=== PATIENT | female | born 1980 | race African-American/Black ===

== ENCOUNTER 2020-07-29 09:09 | Outpatient (CLI) | payer OTHER, SELFPAY ==
[2020-07-29 09:30] LABS: Basophils Percent Auto 0.6 % (0.2-1.2); Eosinophils Absolute Auto 0.2 K/mm3 (0-0.3); Eosinophils Percent Auto 3.1 % (0-4.4); Hematocrit 35.5 % (37.0-47.0); Hemoglobin 11.4 g/dL (12.0-15.0); Immature Granulocyte Absolute 0.02 K/mm3 (0.00-0.031); Immature Granulocyte Percent A 0.3 % (0-0.5); Lymphocytes Absolute Auto 1.99 K/mm3 (0.9-3.2); Lymphocytes Percent Auto 29.2 % (18.3-44.2); Mean Corpuscular HGB Conc 32.1 g/dl (32-36); Mean Corpuscular Hemoglobin 27.7 pg (26-34); Mean Corpuscular Volume 86.4 fl (80-100); Mean Platelet Volume 9.9 fl (7.4-10.4); Monocytes Absolute Auto 0.4 K/mm3 (0.1-0.6); Monocytes Percent Auto 5.4 % (2.6-8.5); Neutrophils Absolute Auto 4.2 K/mm3 (1.3-6.7); Neutrophils Percent Auto 61.4 % (45.5-73.1); Platelet Count Result 374 k/mm3 (150-375); Red Blood Count 4.11 M/mm3 (4.2-5.4); Red Cell Distribution Width 12.8 % (11.5-14.5); White Blood Count 6.8 K/mm3 (4.5-10.0)
== END 2020-07-29 09:10 | disposition home or self-care (01) ==
LOC: ANHSURGERY 09:14
PROVIDERS: Visit Provider Obstetrics & Gynecology
DX: N92.6 Irregular menstruation, unspecified (principal)
CPT/HCPCS: 36415; 85025; 86850; 86900; 86901

== ENCOUNTER 2020-08-03 02:19 | Outpatient (CLI) | payer OTHER, SELFPAY ==
[2020-08-03 18:24] LABS: SARS-CoV-2 RNA PCR Negative
== END 2020-08-03 02:20 | disposition home or self-care (01) ==
LOC: ANHCOVIDDT 02:19
PROVIDERS: Visit Provider Obstetrics & Gynecology
DX: Z01.812 Encounter for preprocedural laboratory examination (principal); Z20.828 Contact with and (suspected) exposure to other viral communicable diseases
CPT/HCPCS: 87635; C9803; U0003

== ENCOUNTER 2020-08-05 00:35 | Day surgery (SDC) | payer OTHER, SELFPAY ==
[2020-07-25 08:46] VITALS: BMI 44.6
--- NOTE | 2020-08-03 07:58 | PM.IMHP ---
H&P: HPI History of Present Illness Date/Time: 08/03/20 07:58 Chief complaint: Irregular Bleeding/ Enlarged Uterus/ Fibroids Narrative: Ashkan Brewster is a 39 year old female With an enlarged uterus who was admitted for robotic hysterectomy and bilateral salpingectomy. She complains of excessive heavy bleeding chronic and severe pelvic pain and dyspareunia. She has an ultrasound confirming an enlarged fibroid uterus. She opts for definitive therapy. Risks and benefits were reviewed including but not exclusive of , aspiration pneumonia, bleeding, transfusion, perforation injury to bowel, bladder, ureters or other internal organs with need for open laparotomy screws good understanding. She had all questions answered. She PMFSH Social History Social History Smoking status: Never smoker Alcohol intake: current Drinks per week: 3 Substance use: former Substance use type: marijuana Spiritual care concerns: No Meds Home Medications and Allergies Home Medications Medication Instructions Recorded Confirmed Type hydrocodone-acetaminophen 1 tablet PO DAILY 07/25/20 07/25/20 History ibuprofen 600 mg PO Q6H PRN 07/25/20 07/25/20 History loratadine [Claritin] 10 mg PO DAILY 07/25/20 07/25/20 History tramadol 50 mg PO DIRECTED PRN 07/25/20 07/25/20 History Allergies Allergy/AdvReac Type Severity Reaction Status Date / Time No Known Allergies Allergy Unknown Unverified 07/25/20 08:47 Exam Const: General: no acute distress Eyes: General: appearance normal, both eyes and all related structures Neck: Neck: supple and no JVD Thyroid: thyroid normal Resp: Effort & Inspection: normal respiratory effort Auscultation: clear to auscultation bilaterally Cardio: Rate: regular rate Rhythm: regular rhythm GI: Inspection: non-distended GI Palp: Yes Soft to palpation, No Tenderness to palpation present (GI) and No Guarding due to palpation present (GI) Auscultation: normal bowel sounds : General: Yes bladder normal to inspection External Female Exam: normal external appearance Speculum Exam - Vagina: normal appearance of the vagina Speculum Exam - Cervix: Cervical os closed Bimanual exam- vagina & uterus: enlarged Skin: General skin exam: no rashes or lesions noted Extrem: General: normal to inspection and no edema Psych: Mental Status: mental status grossly normal Affect: normal affect Assessment and Plan Additional Plan impression: Enlarged uterus and pelvic pain with irregular bleeding refractory to medical therapy Plan: Robotic total vaginal hysterectomy and bilateral salpingectomies
--- NOTE | 2020-08-04 14:34 | WPDANESEPP ---
Anes - Eval Pre Procedure Procedure: Operation Date: 08/05/20 07:30 Proposed Procedures p Robotic Assisted Total Vaginal Hysterectomy With Bilateral Salpingectomy - Remington Viramontes MD Date/Time: 08/04/20 14:34 Pre Op Diagnosis: Irregular Bleeding/ Enlarged Uterus/ Fibroids Patient Data Age: 39 Gender: F Height: 1.63 m Weight: 117.93 kg Allergies Allergy/AdvReac Type Severity Reaction Status Date / Time No Known Allergies Allergy Unknown Unverified 07/25/20 08:47 Home Medications Medication Instructions Recorded Confirmed Type hydrocodone-acetaminophen 1 tablet PO DAILY 07/25/20 07/25/20 History ibuprofen 600 mg PO Q6H PRN 07/25/20 07/25/20 History loratadine [Claritin] 10 mg PO DAILY 07/25/20 07/25/20 History tramadol 50 mg PO DIRECTED PRN 07/25/20 07/25/20 History Patient hx anesthesia problems: none Family hx anesthesia problems: none PMFSH Past Medical History Medical History (Updated 08/04/20 @ 14:34 by Jessica Hutchinson CRNA) Marijuana smoker Morbid obesity with BMI of 40.0-44.9, adult Social History Social History Smoking status: Never smoker Alcohol intake: current Drinks per week: 3 Substance use: former Substance use type: marijuana Spiritual care concerns: No Exam Day of Procedure 08/04/20 14:34
[2020-08-05] VITALS (15 sets, daily range): BP systolic 96–127; BP diastolic 44–61; PULSE 48–76; RESP 8–18; TEMP 36.1–36.7; O2SAT 92–100
--- NOTE | 2020-08-05 06:30 | WPDHPUPDATE1 ---
History and Physical Update Update Date/Time: 08/05/20 06:30 History and Physical has been reviewed, including an updated exam of the patient. There are NO changes in the patient's condition. Risks, benefits, and alternatives have been discussed and questions answered. Patient agrees to proceed with procedure.
[2020-08-05] MEDS: LACTATED RINGERS 1,000 ML 30 ML IV CONT ×2 (07:03→09:15)
[2020-08-05 07:11] LABS: Beta HCG Quantitative 73.08 mIU/ML
--- NOTE | 2020-08-05 07:14 | WPDHPUPDATE1 ---
History and Physical Update Update Date/Time: 08/05/20 07:14 History and Physical has been reviewed, including an updated exam of the patient. There are NO changes in the patient's condition. Risks, benefits, and alternatives have been discussed and questions answered. Patient agrees to proceed with procedure. quant hcg is 73. she is blledding heavily consitent with abnormal . pt agreeable to proceed
--- NOTE | 2020-08-05 07:17 | WPDANESEPPF ---
Anes - Initial Pre Proc Eval Procedure: Operation Date: 08/05/20 07:30 Proposed Procedures p Robotic Assisted Total Vaginal Hysterectomy With Bilateral Salpingectomy - Remington Viramontes MD Date/Time: 08/05/20 07:17 Surgeon: Remington Viramontes MD Pre Op Diagnosis: Irregular Bleeding/ Enlarged Uterus/ Fibroids Patient Data Age: 39 Gender: F Height: 5 ft 4 in Weight: 112.4 kg Last Vital Signs Temp 36.2 C L 08/05/20 06:46 Pulse 71 08/05/20 06:46 Resp 18 08/05/20 06:46 BP 127/50 L 08/05/20 06:46 Pulse Ox 100 08/05/20 06:46 Allergies Allergy/AdvReac Type Severity Reaction Status Date / Time No Known Allergies Allergy Unknown Unverified 07/25/20 08:47 Home Medications Medication Instructions Recorded Confirmed Type hydrocodone-acetaminophen 1 tablet PO DAILY 07/25/20 08/05/20 History ibuprofen 600 mg PO Q6H PRN 07/25/20 08/05/20 History loratadine [Claritin] 10 mg PO DAILY 07/25/20 08/05/20 History tramadol 50 mg PO DIRECTED PRN 07/25/20 08/05/20 History hydrocodone-acetaminophen [[place]] 1 tablet PO Q4H PRN #30 tablet 08/05/20 Rx Laboratory Tests 08/05/20 06:35 Beta HCG, Quant 73.08 mIU/ML mIU/ML Patient hx anesthesia problems: none Family hx anesthesia problems: none PMFSH Past Medical History Medical History Marijuana smoker Morbid obesity with BMI of 40.0-44.9, adult Social History Social History Smoking status: Never smoker Alcohol intake: current Drinks per week: 3 Substance use: former Substance use type: marijuana Spiritual care concerns: No Anes - Eval Final PreProcedure Day of Procedure 08/05/20 07:17 Patient weight: morbidly obese Heart: regular rate and rhythm Lungs: clear to auscultation Airway: Mallampati scale class 1 Neurological: alert and oriented Last oral intake: >/= 8 hours ASA classification: III Emergent: no Anesthetic plan: proceed Anesthesia type and monitoring: general ETT and standard monitoring Informed Consent: The patient's anesthetic plan and its attendant risks and benefits were discussed with the patient/family/POA. Questions were solicited and answers provided to the satisfaction of the patient/family/POA.
[2020-08-05] MEDS: KETOROLAC 15 MG/ML VIAL (*BKC) IV PUSH (07:18)
[2020-08-05] MEDS: ACETAMINOPHEN 500 MG TABLET 1000 MG PO (07:18)
[2020-08-05] MEDS: ceFAZolin SODIUM 1 GM VIAL IV PUSH (07:26)
[2020-08-05] MEDS: ceFAZolin 2 GM/D5W 50 ML 2 GM/50 ML BAG IVPB (07:26)
--- NOTE | 2020-08-05 07:27 | SUR.PREOP ---
0630- URINE PREG. OBTAINED ON PT. RESULTED POSITIVE. PT STATED SHE STARTED BLEEDING YESTERDAY AND HAS CRAMPING. CALLED DR.DALLA WHELAN WITH RESULTS. BETA HCG OBTAINED. RESULTED (SEE CHART). DR. ADRIANA WHELAN REVIEWED RESULTS AND SPOKE WITH PT. AFTER SPEAKING WITH DR. ADRIANA WHELAN AND PT DECIDED TO MOVE FORWARD WITH PROCEDURE.
--- NOTE | 2020-08-05 08:58 | PM.PROC ---
Procedure Note - Detailed Date of procedure: 08/05/20 Pre-op diagnosis: Irregular Bleeding/ Enlarged Uterus/ Fibroids Surgeon: Remington Viramontes MD Postop diagnosis: Irregular bleeding/ enlarged uterus /fibroids Procedure: Robotic total vaginal hysterectomy and bilateral salpingectomies EBL: 50cc Anesthesia: General endotracheal Complications: None Findings: A markedly enlarged fibroid uterus. Normal-appearing ovaries bilaterally bilateral hydrosalpinx. Description of procedure: The patient was prepped draped in normal sterile fashion placed in the dorsal lithotomy position. Under excellent general endotracheal anesthesia weighted speculum placed in posterior fornix of vagina. The anterior lip of the cervix was grasped with single-tooth tenaculum the uterus sounded to 10cm. Serial dilatation with fragmented dilators was performed. This was followed by passage of the 8. LOIDA and the 3. And half cold cup. A 16 [place] catheter was placed and the bladder drained of clear urine. There were other instruments removed. The gloves were changed. Supraumbilical incision was made in the Veress needle passed in the abdomen. The abdomen was filled with CO2 gas [id number]. The 8mm trocar was advanced in the abdomen. The downside was visualized and no injury seen. The patient was placed in Trendelenburg left lateral incisions were made in the 8mm trocars advanced under direct visualization assuring no injury. A right upper quadrant incision was made in the 10mm trocar advanced under direct visualization again assuring no injury. The uterus was noted be large irregular there were some mild amount of scar tissue and the tubes were bilaterally consistent with hydrosalpinx. Attention was turned to the employee counselor. The left fallopian tube was grasped at its midportion and this was sharply dissected away from the ovary to its base at the uterus. In like fashion to remove the right tube this was performed as well. The left round ligament was grasped, burned, cut. Anteriorly a bladder flap was formed and the bladder was reflected away from the uterus and cervix caudally to the opposite round ligament which was clamped, burned, cut. Next the utero-ovarian ligament left was skeletonized. This was clamped, burned, cut and brought to the level of the previously cut round ligament to conserve the left ovary. Conserving the right ovary the utero-ovarian ligament on the right was clamped, burned, cut brought to the level of the previously cut round ligament. Next the cardinal and broad ligaments were serially skeletonized on the left clamped, burned, cut and brought down the lateral edge of the uterus until the uterine vessels could be seen. These were large and tortuous and were individually clamped, burned, cut. In like fashion the cardinal and broad ligaments on the right were serially skeletonized. These were clamped, burned, cut brought down the lateral edge of the cervix and uterus until the uterine vessels right could be seen these were individually clamped, burned,. Blanching the uterus was seen a colpotomy incision was made and the cervix uterus and tubes were removed. The uterus weighed in excess of 370 g. Blood loss was estimated [id number] the vaginal cuff was closed with continuous running 0V lock from lateral edge to lateral edge and back to the midline. Irrigation was undertaken until clear. The raw surface area was removed with hematuria. Hemostasis at all pedicles appeared present. The robot was undocked. The gas removed from the abdomen. The trocars from the abdomen. The incisions closed with 4 O Monocryl and glue. Instruments removed from the vagina. The patient was awakened and went to recovery in satisfactory condition. All sponge, needle, instrument counts were correct. There were no immediate complications
[2020-08-05] MEDS: fentaNYL CITRATE INJ (*CRX) 100 MCG/2 ML VIAL 25 MCG IV PUSH ×4 (09:33→09:50)
[2020-08-05] MEDS: DEXTROSE 5%/LACTATED RINGERS 1,000 ML 125 ML IV CONT (10:54)
[2020-08-05] MEDS: HYDROcodone/acetaminophen (*CRX) 10-325 MG TABLET 1 TAB PO ×2 (10:56→16:49)
[2020-08-05] MEDS: ENOXAPARIN 40 MG/0.4 ML SYRINGE SUB-Q (10:56)
[2020-08-05] MEDS: KETOROLAC 30 MG/ML VIAL (*BKC) IV PUSH ×2 (13:37→20:22)
[2020-08-05] MEDS: DOCUSATE SODIUM 100 MG CAPSULE PO (16:50)
[2020-08-05] MEDS: ONDANSETRON INJ 4 MG/2 ML VIAL IV PUSH (17:32)
[2020-08-06] MEDS: KETOROLAC 30 MG/ML VIAL (*BKC) IV PUSH (04:47)
[2020-08-06 04:50] VITALS: BP 109/58; PULSE 60; RESP 12; TEMP 37.3; O2SAT 94
[2020-08-06] MEDS: HYDROcodone/acetaminophen (*CRX) 5-325 MG TABLET 1 TAB PO ×2 (05:19→10:55)
[2020-08-06 06:12] LABS: Basophils Percent Auto 0.3 % (0.2-1.2); Eosinophils Percent Auto 0.1 % (0-4.4); Hematocrit 33.2 % (37.0-47.0); Hemoglobin 10.6 g/dL (12.0-15.0); Immature Granulocyte Absolute 0.03 K/mm3 (0.00-0.031); Immature Granulocyte Percent A 0.3 % (0-0.5); Lymphocytes Absolute Auto 1.93 K/mm3 (0.9-3.2); Lymphocytes Percent Auto 17.9 % (18.3-44.2); Mean Corpuscular HGB Conc 31.9 g/dl (32-36); Mean Corpuscular Hemoglobin 27.4 pg (26-34); Mean Corpuscular Volume 85.8 fl (80-100); Mean Platelet Volume 10.8 fl (7.4-10.4); Monocytes Absolute Auto 0.5 K/mm3 (0.1-0.6); Monocytes Percent Auto 4.7 % (2.6-8.5); Neutrophils Absolute Auto 8.3 K/mm3 (1.3-6.7); Neutrophils Percent Auto 76.7 % (45.5-73.1); Platelet Count Result 310 k/mm3 (150-375); Red Blood Count 3.87 M/mm3 (4.2-5.4); Red Cell Distribution Width 12.7 % (11.5-14.5); White Blood Count 10.8 K/mm3 (4.5-10.0)
--- NOTE | 2020-08-06 07:25 | P.DS_ITS ---
DS: Admitting Diagnosis Admitting Diagnosis Admitting Diagnosis: Irregular Bleeding/ Enlarged Uterus/ Fibroids DS: Summary Time Spent with Patient Time attestation: Total time spent providing and/or coordinating discharge services: The patient is course was unremarkable. She remained afebrile. She was up, voiding without difficulty passing gas, eating, and generally without complaints. Condition was stable upon discharge. Exam Const: General: no acute distress Eyes: General: appearance normal, both eyes and all related structures Neck: Neck: supple and no JVD Thyroid: thyroid normal Resp: Effort & Inspection: normal respiratory effort Auscultation: clear to auscultation bilaterally Cardio: Rate: regular rate Rhythm: regular rhythm GI: Inspection: non-distended GI Palp: Yes Soft to palpation, No Tenderness to palpation present (GI) and No Guarding due to palpation present (GI) Auscultation: normal bowel sounds : General: Yes bladder normal to palpation External Female Exam: normal external appearance Speculum Exam - Vagina: normal vaginal discharge and No v aginal bleeding Speculum Exam - Cervix: nontender Bimanual exam- vagina & uterus: bladder normal to palpation and No Cervical tenderness present OB/external & speculum: No vaginal bleeding Skin: General skin exam: no rashes or lesions noted Extrem: General: normal to inspection and no edema Psych: Mental Status: mental status grossly normal Affect: normal affect DS: Data Data Completed and Pending Pending studies at discharge: Pending at discharge 08/05/20 08:20 Surgical [PTH] Routine Labs on day of discharge: Labs from last 24 hours 08/06/20 04:59 WBC 10.8 H RBC 3.87 L Hgb 10.6 L Hct 33.2 L MCV 85.8 MCH 27.4 MCHC 31.9 L RDW 12.7 Plt Count 310 MPV 10.8 H Immature Gran % (Auto) 0.3 Neut % (Auto) 76.7 H Lymph % (Auto) 17.9 L [place] % (Auto) 4.7 Eos % (Auto) 0.1 Baso % (Auto) 0.3 Lymph # (Auto) 1.93 [place] # (Auto) 0.5 Eos # (Auto) 0.0 Baso # (Auto) 0.0 Abs Immat Gran (auto) 0.03 Absolute Neuts (auto) 8.3 H Absolute Nucleated RBC 0.0 Nucleated RBC % 0.0 Discharge Plan Discharge Patient Disposition: Home, Self-Care Stand Alone Forms: General Discharge Instructions Follow-up/Referrals: Remington Viramontes MD [Physician] - Discharge Medications: New hydrocodone-acetaminophen [[place]] 5-325 mg tablet 1 tablet PO Q4H PRN (Reason: pain) Qty: 30 RF: 0 No Action hydrocodone-acetaminophen 5-325 mg tablet 1 tablet PO DAILY RF: 0 tramadol 50 mg tablet 50 mg PO DIRECTED PRN (Reason: Pain) RF: 0 ibuprofen 600 mg tablet 600 mg PO Q6H PRN (Reason: Pain) RF: 0 loratadine [Claritin] 10 mg Tablet 10 mg PO DAILY RF: 0
[2020-08-06 08:00] VITALS: BP 129/68; PULSE 73; RESP 14; TEMP 36.3; O2SAT 100
[2020-08-06] MEDS: IBUPROFEN 600 MG TABLET PO (10:54)
== END 2020-08-06 11:50 | disposition home or self-care (01) ==
LOC: ANHSURGERY 06:31 → ANHOB2 10:46
PROVIDERS: Visit Provider Obstetrics & Gynecology
PROC: (CPT 58554; principal; 2020-08-05 07:30)
DX: N93.9 Abnormal uterine and vaginal bleeding, unspecified (principal); N70.11 Chronic salpingitis; N72 Inflammatory disease of cervix uteri; D25.0 Submucous leiomyoma of uterus; D25.1 Intramural leiomyoma of uterus; D25.2 Subserosal leiomyoma of uterus; N83.8 Other noninflammatory disorders of ovary, fallopian tube and broad ligament; R10.2 Pelvic and perineal pain; N94.10 Unspecified dyspareunia; G89.29 Other chronic pain; E66.01 Morbid (severe) obesity due to excess calories; Z68.41 Body mass index [BMI] 40.0-44.9, adult
CPT/HCPCS: 58554; S2900; 36415; 84702; 85025; 88307; 99199; A9270; J0330; J0690; J1100; J1170; J1650; J1885; J2250; J2370; J2405; J2704; J2710; J3010; J7030; J7120; J7121

== ENCOUNTER 2020-08-12 13:12 | Observation (INO) | payer OTHER, SELFPAY ==
--- NOTE | ~2020-08-12 | XR_ITS ---
XR abdomen/kub 1V DATE: 08/12/2020 13:55 INDICATION: Low abdominal pain, constipation. Laparoscopic hysterectomy one week ago TECHNIQUE: AP projection, 2 views COMPARISON: None FINDINGS: The psoas shadows are intact. No visceromegaly is evident. There is no evidence of bowel ob struction. There are bilateral calcified pelvic phleboliths. Included skeletal structures are unremar kable. IMPRESSION: No significant abnormality Reviewed, dictated and finalized at [facility]. Reviewed, dictated and finalized at [facility]. IMPRESSION: No significant abnormality
--- NOTE | ~2020-08-12 | CT_ITS ---
EXAMINATION: CT abdomen pelvis w con DATE: 08/12/2020 16:13 INDICATION: Abdominal pain and constipation. TECHNIQUE: Computed tomography (CT) of the abdomen and pelvis was performed with 100 mL Omnipaque-350 intravenous contrast. Automated exposure control and iterative reconstruction technique were employe d. The dose-length product was 1536.79 mGy-cm. COMPARISON: None FINDINGS: Lung bases are clear. Heart size is normal. No pericardial or pleural effusion. Small region of subtl e focal hepatic steatosis at the ligamentum teres. Gallbladder, spleen, pancreas, bilateral adrenal g lands and kidneys are normal. Small fat-containing umbilical hernia. There is a small amount of gas i n the supra umbilical anterior abdominal wall likely along a laparoscopy port tract with subtle stran ding along a couple additional likely laparoscopy port tracks in the right mid and lower abdomen. [place] tommy is not visualized consistent with provided history of recent hysterectomy. There is peripheral en hancement surrounding a few small loculated gas and fluid collections in the pelvis, the largest rosalva uring 5.0 x 4.2 x 4.0 cm positioned between the cervix and the rectum. There is mild stranding in the pelvis. There is edematous-appearing rectal wall thickening. The remainder of the more proximal bobby ls including the appendix are normal. Bilateral ovaries are unremarkable. Mild bladder wall thickenin g which could be due to partially decompressed state or cystitis either due to urinary tract infectio n or reactive to the adjacent inflammatory changes in the pelvis. No pathologically enlarged abdomina l or pelvic lymphadenopathy. Mild degenerative skeletal changes in the spine and at the bilateral hip s. IMPRESSION: 1. Postoperative changes of recent laparoscopic hysterectomy with a few small loculated gas and fluid collections in the deep pelvis, the largest in the cul-de-sac measuring 5.0 cm maximal diameter. Dif ferential would include abscess or postoperative hematoma/seroma. 2. Wall thickening at the rectum and bladder likely related to inflammation due to the adjacent suspe cted abscess. Cystitis and localized colitis are considered less likely but would correlate with urin alysis. Reviewed, dictated and finalized at location A. IMPRESSION: 1. Postoperative changes of recent laparoscopic hysterectomy with a few small l oculated gas and fluid collections in the deep pelvis, the largest in the cul-d e-sac measuring 5.0 cm maximal diameter. Differential would include abscess or postoperative hematoma/seroma. 2. Wall thickening at the rectum and bladder likely related to inflammation due to the adjacent suspected abscess. Cystitis and localized colitis are consider ed less likely but would correlate with urinalysis.
[2020-08-12 13:21] VITALS: BP 132/58; PULSE 82; RESP 18; TEMP 36.4; O2SAT 100
[2020-08-12 13:31] LABS: Basophils Absolute Auto 0.1 K/mm3 (0.0-0.1); Basophils Percent Auto 0.5 % (0.2-1.2); Eosinophils Absolute Auto 0.2 K/mm3 (0-0.3); Eosinophils Percent Auto 1.2 % (0-4.4); Hematocrit 33.6 % (37.0-47.0); Hemoglobin 10.7 g/dL (12.0-15.0); Immature Granulocyte Absolute 0.18 K/mm3 (0.00-0.031); Immature Granulocyte Percent A 1.4 % (0-0.5); Lymphocytes Absolute Auto 1.71 K/mm3 (0.9-3.2); Lymphocytes Percent Auto 13.1 % (18.3-44.2); Mean Corpuscular HGB Conc 31.8 g/dl (32-36); Mean Corpuscular Hemoglobin 27.3 pg (26-34); Mean Corpuscular Volume 85.7 fl (80-100); Mean Platelet Volume 10.2 fl (7.4-10.4); Monocytes Absolute Auto 0.9 K/mm3 (0.1-0.6); Monocytes Percent Auto 6.7 % (2.6-8.5); Neutrophils Absolute Auto 10.1 K/mm3 (1.3-6.7); Neutrophils Percent Auto 77.1 % (45.5-73.1); Platelet Count Result 398 k/mm3 (150-375); Red Blood Count 3.92 M/mm3 (4.2-5.4); Red Cell Distribution Width 12.5 % (11.5-14.5); White Blood Count 13.1 K/mm3 (4.5-10.0)
[2020-08-12 13:47] LABS: Alanine Aminotransferase 60 U/L (4-35); Alkaline Phosphatase 133 U/L (38-126); Anion Gap 9 mmol/L (8-16); Aspartate Amino Transferase 55 U/L (14-36); Bilirubin,Total 0.3 mg/dL (0.2-1.3); Blood Urea Nitrogen 9 mg/dL (7-17); Calcium 9.2 mg/dL (8.4-10.2); Carbon Dioxide 30 mmol/L (22-30); Chloride 103 mmol/L (98-107); Estimated CRCL calculation 103 ml/min; Estimated Glomerular Filt Rate > 60; Glucose 105 mg/dL (65-105); Lipase 102 U/L (23-300); Potassium 3.8 mmol/L (3.4-5.0); Sodium 142 mmol/L (137-145)
[2020-08-12 15:05] LABS: Add Urine Microscopic? YES; Appearance Urine Cloudy (Clear); Bacteria Urine 2+ /hpf; Bilirubin Urine 1+ (Negative); Blood Urine 3+ (Negative); Color Urine Amber (Yellow); Glucose Urine UA Negative (Negative); Ketones Urine Negative (Negative); Leukocyte Esterase Ur 2+ LEU/UL (Negative); Mucus Urine Heavy /lpf; Nitrate Urine Negative (Negative); Protein Urine 3+ mg/dL (Negative); RBC Urine >75 /hpf (0-2); Squamous Epithelial Cell Urine Many /hpf (Few); WBC Clumps Urine Present /HPF; WBC Urine >75 /hpf
[2020-08-12 15:43] VITALS: BP 134/70; PULSE 78; RESP 12; O2SAT 99
--- NOTE | 2020-08-12 16:06 | ED.ABDPAIN ---
HPI - Abdominal Pain General Chief Complaint: Abdominal Pain Stated Complaint: ABDOMINAL PAIN/CONSTIPATION Time Seen by Provider: 08/12/20 14:51 Source: patient Mode of arrival: ambulatory Limitations: no limitations History of Present Illness HPI narrative: This patient is a 39 year old female 1 week s/p hysterectomy who presents for evaluation lower abdominal pain and constipation. She reports she has not had a bowel movement since 08/03/20. She report decreased appetite with nausea but no vomiting. She denies fever or chills. She also reports pain when she tries to urinate. She also reports rectal pain when she tries to have a bowel movement. She is taking norco for her pain. She was started on colace twice a day on saturday for her constipation. She also reports drinking magnesium citrate today. MD elicited complaint: abdominal pain Related Data Allergies Allergy/AdvReac Type Severity Reaction Status Date / Time No Known Allergies Allergy Unknown Verified 08/12/20 19:09 Review of Systems Review of Systems: All systems reviewed & are unremarkable except as noted in HPI and below Constitutional: Constitutional: Denies chills and Denies fever(s) Respiratory: Respiratory: Denies cough and Denies dyspnea Gastrointestinal: Gastrointestinal: Reports abdominal pain, Reports constipation and Reports nausea Genitourinary: Genitourinary: Reports nocturia and Reports dysuria [facility] Past Medical History Medical History (Updated 08/12/20 @ 19:19 by Tessa Santiago MD) Marijuana smoker Morbid obesity with BMI of 40.0-44.9, adult Surgical History Surgical History (Updated 08/12/20 @ 19:19 by Tessa Santiago MD) History of hysterectomy Family History Family History (Updated 08/12/20 @ 18:32 by Teresa Villalta RN) Grandparent Diabetes mellitus Sibling Hypertension Social History Social History Smoking status: Never smoker Alcohol intake: never Drinks per week: 3 Substance use: never Substance use type: does not use Gender identity (if verbalized by the patient): Female Sexual Orientation (if Verbalized by the Patient): Straight or Heterosexual Spiritual care concerns: No Exam Const: General: no acute distress and alert Nutritional Appearance: obese Orientation/consciousness: patient oriented x3 Neck: Neck: no lymphadenopathy Cardio: Rate: regular rate Rhythm: regular rhythm Heart sounds: no murmurs GI: GI Palp: Yes Soft to palpation, Yes Tenderness to palpation present (GI), No Guarding due to palpation present (GI), No Rigid due to palpation and No Hernia present Auscultation: Hypoactive bowel sounds present Other: external hemorrhoids with no bleeding, no fecal impaction Skin: General skin exam: normal color Rashes: no rashes Other: abdominal laparoscopic incision intact with no drainage Neuro: General: patient oriented x3 and moves all extremities Course Consultations Consultation #1: I Discussed case and CT with Dr. Curtis. He recommends admitting for ileus, npo, IVF. He agrees no antibiotics at this time. Date: 08/12/20 Time: 17:23 Vital Signs Vital signs: Vital Signs Temperature 97.5 F L 08/12/20 13:21 Pulse Rate 82 08/12/20 13:21 Respiratory Rate 18 08/12/20 13:21 Blood Pressure 132/58 L 08/12/20 13:21 Pulse Oximetry 100 08/12/20 13:21 Temperature 97.8 F 08/12/20 18:20 Pulse Rate 81 08/12/20 18:20 Respiratory Rate 14 08/12/20 18:20 Blood Pressure 130/67 08/12/20 18:20 Pulse Oximetry 99 08/12/20 18:20 MDM - Abdominal Pain Lab Data Attestation: I reviewed the patient's lab results. Result diagrams: 08/12/20 13:24 08/12/20 13:24 Labs: Lab Results 08/12/20 08/12/20 08/12/20 Range/Units 13:24 13:24 14:55 WBC 13.1 H (4.5-10.0) K/mm3 RBC 3.92 L (4.2-5.4) M/mm3 Hgb 10.7 L (12.0-15.0) g/dL Hct 33.6 L
[2020-08-12] MEDS: KETOROLAC 30 MG/ML VIAL (*BKC) IV PUSH (16:20)
[2020-08-12] MEDS: LACTATED RINGERS 1,000 ML 999 ML IV CONT (16:20)
[2020-08-12 16:43] VITALS: BP 130/55; PULSE 79; RESP 14; O2SAT 99
[2020-08-12 18:14] VITALS: BP 125/73; PULSE 70; RESP 12; O2SAT 99
[2020-08-12 18:20] VITALS: BP 130/67; PULSE 81; RESP 14; TEMP 36.6; O2SAT 99; BMI 43.7
--- NOTE | 2020-08-12 18:30 | PC.NURSE ---
This patient, Ashkan Brewster, was admitted to Medical Room 246-01. Patient/family oriented to hospital policies and general routines including ID bracelet, bed and alarms, visiting hours, pain management, procedures, bathroom and other care routines, personal items, smoking policy, room service/diet, and visiting hours. Valuables list has been completed. Information on how to activate the Rapid Response Team has been discussed. Patient/Family are encouraged to report perceived risks to care and to ask questions if they do not understand what they are told or what they should do.
[2020-08-12] MEDS: SODIUM CHLORIDE 0.9% IV 1,000 ML 125 ML IV CONT (18:47)
--- NOTE | 2020-08-12 19:04 | PM.IMHP ---
H&P: HPI History of Present Illness Date/Time: 08/12/20 19:04 Chief complaint: postoperative ileus Narrative: Ashkan Brewster is a 39 year old female who presents to the ER with abdominal pain 1 week post-op from robotic hysterectomy. Pt underwent robotic TLH/BS on 08/05/20. pt states today that she had has a worsening abdominal pain for the past few days. Pt states that the first few days after the surgery she just took pain meds and slept. She reports poor PO intake. Pt states her pain will come and go and is exacerbated by voiding and GI cramps. Pt states she was taking her narcotic pain medicatoins scheduled. She reports she is now starting to wean. Pt states she has not had a BM since before the surgery. She reports food aversion and some nausea but denies any emesis. Pt reports flatus. Pt denies any dysuria but states the abdominal pain is worse when she tries to void. She denies any tacticle fevers. Review of Systems Review of Systems: All systems reviewed & are unremarkable except as noted in HPI and below PMFSH Past Medical History Medical History (Updated 08/12/20 @ 19:09 by Derek Curtis MD) Marijuana smoker Morbid obesity with BMI of 40.0-44.9, adult Family History Family History (Updated 08/12/20 @ 18:32 by Teresa Villalta RN) Grandparent Diabetes mellitus Sibling Hypertension Social History Social History Smoking status: Never smoker Alcohol intake: never Drinks per week: 3 Substance use: never Substance use type: does not use Gender identity (if verbalized by the patient): Female Sexual Orientation (if Verbalized by the Patient): Straight or Heterosexual Spiritual care concerns: No Meds Home Medications and Allergies Home Medications Medication Instructions Recorded Confirmed Type hydrocodone-acetaminophen [[place]] 1 tablet PO Q4H PRN #30 tablet 08/06/20 08/12/20 Rx Allergies Allergy/AdvReac Type Severity Reaction Status Date / Time No Known Allergies Allergy Unknown Verified 08/12/20 19:09 Vital Signs Vital Signs - 24 hr 08/12/20 13:21 08/12/20 15:43 08/12/20 16:43 Temperature 36.4 C L Pulse Rate 82 78 79 Respiratory Rate 18 12 14 Blood Pressure 132/58 L 134/70 130/55 L Pulse Oximetry 100 99 99 08/12/20 18:14 Temperature Pulse Rate 70 Respiratory Rate 12 Blood Pressure 125/73 Pulse Oximetry 99 Exam Const: General: cooperative, healthy appearing and no acute distress Nutritional Appearance: obese HENMT: Head: normal to inspection Eyes: General: appearance normal, both eyes and all related structures Neck: Neck: normal visual inspection Resp: Effort & Inspection: normal respiratory effort and able to speak in complete sentences Cardio: Jugular venous distension: no JVD Rate: regular rate Rhythm: regular rhythm GI: Inspection: distended, Pannus present and obesity GI Palp: Yes Soft to palpation, Yes Tenderness to palpation present (GI) and Yes Rigid due to palpation Back/Spine/Pelvis: Back: no CVA tenderness H&P: Results Labs Labs: Short CBC 08/12/20 Range/Units 13:24 WBC 13.1 H (4.5-10.0) K/mm3 Hgb 10.7 L (12.0-15.0) g/dL Hct 33.6 L (37.0-47.0) % Plt Count 398 H (150-375) k/mm3 BMP 08/12/20 13:24 Sodium 142 Potassium 3.8 Chloride 103 Carbon Dioxide 30 BUN 9 Creatinine 0.80 Glucose 105 Calcium 9.2 Liver Function 08/12/20 Range/Units 13:24 Total Bilirubin 0.3 (0.2-1.3) mg/dL AST 55 H (14-36) U/L ALT 60 H (4-35) U/L Alkaline Phosphatase 133 H (38-126) U/L Albumin 4.0 (3.5-5.1) g/dL Urine 08/12/20 Range/Units 14:55 Urine Color [place] (Yellow) Urine Appearance Cloudy H (Clear) Urine pH 5.0 (5.0-9.0) Ur Specific [place] 1.030 (1.001-1.035) Urine Protein 3+ H (Negative) mg/dL Urine Glucose (UA) Negative (Negative) mg/dL Assessment and Plan Assessment and plan (
[2020-08-12] MEDS: DOCUSATE SODIUM 100 MG CAPSULE PO (20:15)
[2020-08-12 22:00] VITALS: BP 116/52; PULSE 73; RESP 16; TEMP 36.8; O2SAT 100
[2020-08-12] MEDS: IBUPROFEN IV 800 MG/200 ML 800 MG/200 ML BAG 400 MG IVPB (23:05)
[2020-08-13] MEDS: SODIUM CHLORIDE 0.9% IV 1,000 ML 125 ML IV CONT ×2 (03:39→13:00)
[2020-08-13 06:00] VITALS: BP 120/62; PULSE 70; RESP 16; TEMP 36.3; O2SAT 98
[2020-08-13 06:00] LABS: Basophils Absolute Auto 0.1 K/mm3 (0.0-0.1); Basophils Percent Auto 0.5 % (0.2-1.2); Eosinophils Absolute Auto 0.3 K/mm3 (0-0.3); Eosinophils Percent Auto 2.2 % (0-4.4); Hemoglobin 9.8 g/dL (12.0-15.0); Immature Granulocyte Absolute 0.22 K/mm3 (0.00-0.031); Immature Granulocyte Percent A 1.9 % (0-0.5); Lymphocytes Absolute Auto 2.33 K/mm3 (0.9-3.2); Lymphocytes Percent Auto 19.6 % (18.3-44.2); Mean Corpuscular HGB Conc 31.6 g/dl (32-36); Mean Corpuscular Hemoglobin 27.5 pg (26-34); Mean Corpuscular Volume 86.8 fl (80-100); Mean Platelet Volume 10.4 fl (7.4-10.4); Monocytes Absolute Auto 0.8 K/mm3 (0.1-0.6); Monocytes Percent Auto 6.3 % (2.6-8.5); Neutrophils Absolute Auto 8.3 K/mm3 (1.3-6.7); Neutrophils Percent Auto 69.5 % (45.5-73.1); Platelet Count Result 366 k/mm3 (150-375); Red Blood Count 3.57 M/mm3 (4.2-5.4); Red Cell Distribution Width 12.5 % (11.5-14.5); White Blood Count 11.9 K/mm3 (4.5-10.0)
[2020-08-13 06:20] LABS: Anion Gap 7 mmol/L (8-16); Blood Urea Nitrogen 10 mg/dL (7-17); Calcium 8.5 mg/dL (8.4-10.2); Carbon Dioxide 32 mmol/L (22-30); Chloride 103 mmol/L (98-107); Estimated CRCL calculation 117 ml/min; Estimated Glomerular Filt Rate > 60; Glucose 87 mg/dL (65-105); Potassium 3.4 mmol/L (3.4-5.0); Sodium 142 mmol/L (137-145)
--- NOTE | 2020-08-13 08:21 | PM.GYNPNOP ---
SOCIAL WORK THERAPIST - A/P Assessment and plan (1) Postoperative ileus: Code(s): K91.89 - Other postprocedural complications and disorders of digestive system; K56.7 - Ileus, unspecified Status: Acute Assessment and Plan: Pt has been NPO overnight continue NPO and IVF at 125 ml/hr pt reports one small BM continue colace Will continue current regimen until patient has full BM may consider enema or suppository if still having difficulties with BM (2) Postoperative abdominal pain with fever: Code(s): R10.9 - Unspecified abdominal pain; R50.82 - Postprocedural fever; G89.18 - Other acute postprocedural pain Status: Acute Assessment and Plan: abdominal pain slightly improved pain controlled with IV ibuprofen WBC improving today Will continue zosyn at this time. when diet is advanced, will switch to PO augmentin Time Spent With Patient Time: Total time spent is greater than 50% in coordination of care (as documented) at patient's floor/unit and/or counseling patient: Time with patient: less than 15 minutes SOCIAL WORK THERAPIST- PN:Subj Post-Op Subjective Date/time seen: 08/13/20 08:21 Interval history: 39 yo F admitted for postoperative ileus and abdominal pain with concern for pelvic abcess. Pt states she did well overnight. She still reports some abdominal pain but states it has improved since the time of admission. She still reports exacerbation of pain with voiding but states the intensity is less. She does reports one small BM overnight. She states it was loose and a small amount. Pt has no other complaints today. She is resting comfortably in bed. She remains afebrile. Subjective: patient reports feeling better and patient has no complaints Review of Systems Review of Systems: All systems reviewed & are unremarkable except as noted in HPI and below Exam Const: General: cooperative and comfortable Eyes: General: appearance normal, both eyes and all related structures Neck: Neck: normal visual inspection Resp: Effort & Inspection: normal respiratory effort Cardio: Rate: regular rate Rhythm: regular rhythm GI: Inspection: distended, incision (laparoscopic port site incisions healing appropriately ), Pannus present and obesity GI Palp: Yes abdominal tenderness (mild tenderness to deep palpation) SOCIAL WORK THERAPIST - PN: Obj Data Vital Signs Vital Signs: Vital Signs - 24 hr 08/12/20 13:21 08/12/20 15:43 08/12/20 16:43 Temperature 36.4 C L Pulse Rate 82 78 79 Respiratory Rate 18 12 14 Blood Pressure 132/58 L 134/70 130/55 L Pulse Oximetry 100 99 99 08/12/20 18:14 08/12/20 18:20 08/12/20 22:00 Temperature 36.6 C 36.8 C Pulse Rate 70 81 73 Respiratory Rate 12 14 16 Blood Pressure 125/73 130/67 116/52 L Pulse Oximetry 99 99 100 08/13/20 06:00 Temperature 36.3 C L Pulse Rate 70 Respiratory Rate 16 Blood Pressure 120/62 Pulse Oximetry 98 Intake/Output Intake/Output: Intake & Output 08/10/20 08/11/20 08/12/20 08/13/20 23:59 23:59 23:59 23:59 Intake Total 1250 1000 Output Total 100 Balance 1250 900 Meds/Results Medications: Active Medications Generic Name Dose Route Start Last Admin Trade Name Freq PRN Reason Stop Dose Admin Docusate Sodium 100 mg 08/12/20 21:00 08/12/20 20:15 Docusate Sodium 100 Mg Capsule PO 100 mg Q12HR REYES Administration Sodium Chloride 1,000 mls @ 125 mls/hr 08/12/20 17:30 08/13/20 03:39 Normal Saline Iv IV CONT 125 mls/hr .Q8H REYES Administration Ibuprofen 800 mg in 200 mls @ 400 mls/hr 08/12/20 19:31 08/12/20 23:35 Caldolor 800 Mg/200 Ml IVPB Infused Q6H PRN Infusion Pain Rated 4-6 Ondansetron HCl 4 mg 08/12/20 17:26 Ondansetron Inj 4 Mg/2 Ml Vial IV PUSH Q4H PRN Nausea Radiology Results: ITS Impressions Abdomen X-Ray 08/12/20 13:58 IMPRESSION: No significant abnormality Abdomen/Pelvis CT 08/12/20 16:17 IMPRESSION: 1. Postoperative changes of recent laparoscopic hysterectomy with
[2020-08-13] MEDS: IBUPROFEN IV 800 MG/200 ML 800 MG/200 ML BAG 400 MG IVPB ×2 (09:00→17:26)
[2020-08-13] MEDS: DOCUSATE SODIUM 100 MG CAPSULE PO ×2 (09:01→21:09)
[2020-08-13] MEDS: polyethylene glycoL 3350 17 GM POWD.PACK PO (09:01)
[2020-08-13 14:00] VITALS: BP 117/60; PULSE 76; RESP 16; TEMP 36.3; O2SAT 100
[2020-08-13] MEDS: AMOXICILLIN/CLAVULANATE K 875-125 MG TAB 1 TABLET PO (21:09)
[2020-08-13 22:00] VITALS: BP 105/45; PULSE 64; RESP 18; TEMP 36.4; O2SAT 100
[2020-08-14 06:00] VITALS: BP 118/51; PULSE 73; RESP 16; TEMP 36.3; O2SAT 99
--- NOTE | 2020-08-14 08:12 | P.DS_ITS ---
DS: Admitting Diagnosis Admitting Diagnosis Admitting Diagnosis: postoperative ileus postoperative pelvic abcess DS: Summary Hospital Course Hospital Course: 39 yo F who was admitted 1 wk after robotic assisted hys terectomy with complaints of worsening abdominal pain. She reported not having a BM since before her surgery. CT showed inflammed bowel and bladder as well as a possible abscess. Pt was admitted for bowel rest and IV antibiotics. Pt states her abdominal pain continued to improved. Her leukocytosis was improving after antibiotics. Pt was able to have 3 small BMs during her stay. Her diet was advanced and she was able to tolerate PO without N/V. She still reports mild abdominal pain but states it is improved. Pt was able to be d/c home on HD#2. Status at Discharge Functional status at discharge: independent ambulation Overall status at discharge: patient is progressing back to baseline Time Spent with Patient Time attestation: Total time spent providing and/or coordinating discharge services: Time spent: Less than 30 minutes Exam Const: General: cooperative, comfortable and no acute distress HENMT: Head: normal to inspection Eyes: General: appearance normal, both eyes and all related structures Neck: Neck: normal visual inspection Resp: Effort & Inspection: normal respiratory effort and able to speak in complete sentences Cardio: Rate: regular rate Rhythm: regular rhythm GI: Inspection: incision (healing appropriately ), Pannus present and obesity GI Palp: Yes abdominal tenderness (mild to deep palpation ) Discharge Plan Discharge Attending physician on discharge: Derek Curtis Consulting providers: Alessandra Kim Discharging Clinician: Derek Curtis Patient Disposition: Home, Self-Care Activity: as tolerated and pelvic rest Diet: as tolerated Patient Instructions: Antibiotic Form Stand Alone Forms: General Discharge Information Follow-up/Referrals: Derek Curtis MD [Physician] - Discharge Medications: New docusate sodium 100 mg Capsule 100 mg PO Q12HR Qty: 60 RF: 0 polyethylene glycol 3350 [Miralax] 17 gram Powder In Packet 17 g PO QAM 7 Days Qty: 1 RF: 0 amoxicillin-pot clavulanate [Augmentin] 875-125 mg Tablet 1 tablet PO Q12HR Qty: 14 RF: 0 ibuprofen 600 mg Tablet 600 mg PO Q6H PRN (Reason: Pain Rated 1-3) Qty: 30 RF: 0 Discontinued hydrocodone-acetaminophen [[place]] 5-325 mg tablet 1 tablet PO Q4H PRN (Reason: pain) Qty: 30 RF: 0 Date of admission: 08/12/20 17:26 Primary Care Provider: PHYSICIAN,TELEVISION STATION MANAGER Admitting Provider: Wilbert Draper Attending physician on admission: Derek Curtis Condition: Stable
[2020-08-14] MEDS: DOCUSATE SODIUM 100 MG CAPSULE PO (08:26)
[2020-08-14] MEDS: AMOXICILLIN/CLAVULANATE K 875-125 MG TAB 1 TABLET PO (08:26)
[2020-08-14] MEDS: IBUPROFEN 600 MG TABLET PO (08:26)
[2020-08-14] MEDS: polyethylene glycoL 3350 17 GM POWD.PACK PO (08:27)
== END 2020-08-14 10:50 | disposition home or self-care (01) ==
LOC: ANHED 17:29 → ANH2MED 17:50
PROVIDERS: Family Medicine; Admitting Provider Student in an Organized Health Care Education/Training Program; Emergency Provider General Practice; Visit Provider Student in an Organized Health Care Education/Training Program
DX: K56.7 Ileus, unspecified (principal); K91.89 Other postprocedural complications and disorders of digestive system; E66.01 Morbid (severe) obesity due to excess calories; Z90.79 Acquired absence of other genital organ(s); Z68.41 Body mass index [BMI] 40.0-44.9, adult; Z79.899 Other long term (current) drug therapy
CPT/HCPCS: 36415; 74018; 74177; 80048; 80053; 81001; 83690; 85025; 87086; 87088; 96361; 96365; 96366; 96367; 96374; 96375; 99285; A9270; G0378; J1741; J1885; J2543; J7030; J7120; Q9967